=== PATIENT | male | born 1955 | race Caucasian/White ===

== ENCOUNTER 2025-02-22 12:40 | Emergency (ER) | payer MEDICARE, OTHER, SELFPAY ==
[2025-02-22 12:43] VITALS: BP 108/73
--- NOTE | 2025-02-22 13:48 | ED.GENMED ---
History of Present Illness
General
Chief Complaint: Male Genito-Urinary Symptoms
Source: patient
Exam Limitations: none
Time Seen by Provider: 02/22/25 13:36
Nursing documentation reviewed up to this point in time: agreed with
History of Present Illness
History of Present Illness:
70-year-old male with history as noted presents to the ER for evaluation of hematuria. Patient reports that yesterday he had an episode of hematuria where he urinated gross red blood. He says that today he had an episode where his urine was more
pink but he was passing clots and so he decided to come to the emergency room to be evaluated. He does feel that he has been able to empty his bladder completely. He has not had dysuria or increased frequency. He denies any abdominal pain. He
does note however that he has a history of kidney stones and for the past 4 months has been dealing with intermittent right flank pain�he says he was diagnosed with a right sided kidney stone at [facility] and was discharged for trial
of passage. He says he has been straining his urine but he does not think he ever passed the stone. Pain had generally resolved but has occasionally flared up and so he had not sought care until hematuria started yesterday. He is not on any blood
thinners.
Past History
Past History
ED Past Medical History: Other (Diverticulosis/Diverticilitis, kidney stones)
ED Past Surgical History: Urological
Social History
Tobacco: Non-smoker
Alcohol: Occasional
Drug: None
Living: with family
Employment: Employed
Review of Systems
Review of Systems
All Other Systems: ROS reviewed and negative except as documented in HPI and ROS
Constitutional: Denies fever
Respiratory: Denies trouble breathing
Cardiac: Denies chest pain
ABD/GI: Denies abdominal pain
: Reports flank pain (Intermittent-denies flank pain at present) and bleeding (Hematuria); Denies dysuria or frequency
Musculoskeletal: Denies neck pain or back pain
Neurological: Denies headache
Phy Exam
Physical Exam
Physical Exam:
General: Awake, alert, oriented x3; no acute distress
Head: Normocephalic, atraumatic
Eyes: Conjunctiva normal, sclera anicteric
Throat: Airway intact, handling secretions
Neck: Trachea midline, supple without meningismus
Lungs: Clear to auscultation bilaterally, no wheezing, rales, rhonchi
Heart: Regular rate and rhythm, no murmurs, gallops, or rubs
Abd: Soft, non distended, nontender
Back: No CVA tenderness
Neuro: No gross deficits
Skin: no rash on flank or abdomen
Extremities: Warm well-perfused
Scores
Heart Failure Risk
Heart Failure Risk Score: Not Applicable
Heart Score for Chest Pain Patients
STEMI patient?: Not applicable
Withdrawal Assessment of Alcohol
Withdrawal Assessment Completed?: Not applicable
Course
Orders/Labs/Results
Orders:
Orders
02/22/25 13:38
Bladder Scan- Treatment ONCE
02/22/25 13:47
CT Abd/pel Without Iv Or Oral Urgent
Comment:
Reason For Exam: flank pain, hematuria
02/22/25 14:01
CPK [Creatine Phosphokinase] Urgent
Complete Blood Count/With Diff Urgent
Comprehensive Metabolic Panel Urgent
Urinalysis Reflex To Culture Urgent
Date Specimen was Collected: 02/22/25
Time Specimen was Collected: 13:42
Abnormal Lab Results
02/22/25
14:01
WBC 4.5 L 10^3/uL
(4.8-10.8)
RBC 4.06 L 10^6/uL
(4.70-6.10)
MCV 97.5 H fL
(80.0-94.0)
MCH 32.8 H pg
(27.0-31.0)
Absolute Lymphs (auto) 1.0 L 10^3/uL
(1.2-3.4)
Chloride 110 H mmol/L
(98-107)
Total Protein 6.2 L g/dl
(6.3-8.2)
02/22/25 14:01
02/22/25 14:01
Vital Signs
Initial and Last Documented VS:
Initial Vital Signs
Temp Pulse Resp BP Pulse Ox
36.6 C 67 16 108/73 97
02/22/25 12:43 02/22/25 12:43 02/22/25 12:43 02/22/25 12:43 02/22/25 12:43
Last Documented Vital Signs
Temp Pulse Resp BP Pulse Ox
36.6 C 67 16 106/68 95
02/22/25 12:43 02/22/25 12:43 02/22/25 12:43 02/22/25 14:52 02/22/25 14:55
MDM/Problems Addressed
Differential Diagnosis Includes:
Hematuria/dark urine: Nephrolithiasis, hyperbilirubinemia, bladder polyp, AVM, cancer, rhabdomyolysis, etc
MDM/Problems Addressed:
70-year-old male presents for evaluation of hematuria�has also had intermittent right flank pain for a few months status post diagnosis of nephrolithiasis on the right at outside hospital. He does not think he ever really passed the stone. His
vital signs are normal here. Physical exam as above. He has no urinary retention on bedside bladder scan. Will plan to send urinalysis. Will check labs including a CBC and a CMP. Will send for CT abdomen pelvis to evaluate for nephrolithiasis.
Will reassess after the above.
CBC shows no anemia or thrombocytopenia. CMP shows normal renal function. CPK normal. Urinalysis completely bland with no bilirubin, no blood, no signs of infection. CT shows renal stones and bladder stones but no ureteral stones. Unclear
etiology of episode of hematuria but voiding completely with bland urinalysis now. Possible that he finally passed his ureteral stone and that is why he has bladder stones on CT and there could have been some bleeding with this. Stable for
discharge for outpatient urology referral. Explained that he may need cystoscopy for further inspection to completely rule out cancer and other diagnoses. Spoke about return precautions all questions answered.
*Radiology
Radiology exam reviewed: radiology read reviewed
*Pulse Oximetry
SaO2: 97
Oxygen Mode of Delivery: Room air
Patient hypoxic: no (97%)
*Critical Care Note
Total Time (30-74mins, 75-104mins- exclusive of procedures): Not Applicable
Data Reviewed
Review of Other/Old Records Reveals: Labs and Records
Source: patient and spouse
ED Attending Note
-
Portions of this chart may have been created with voice recognition software.� Occasional wrong word or��sound alike� substitutions may have occurred due to the inherent limitations of voice recognition software.
Discharge Plan
Departure
Patient Disposition: Home (Routine Discharge)
Date of Disposition: 02/22/25
Time of Disposition: 14:50
Patient with high blood pressure during this ER visit?: No
Discharge Problem:
Hematuria
Instructions: Blood in the Urine (Hematuria), Adult (DC)
Prescriptions:
No Action
tamsulosin 0.4 MG capsule
0.4 mg PO DAILY Qty: 7 0RF
levofloxacin [Levaquin] 500 MG tablet
500 mg PO DAILY Qty: 3 1RF
oxycodone-acetaminophen [Percocet] 1 EACH tablet
1 ea PO Q6HPRN PRN (Reason: pain) Qty: 10 0RF
ondansetron 4 MG tablet,disintegrating
4 mg PO TIDPRN PRN (Reason: nausea) Qty: 7 0RF
Align
1 tab PO DAILY
escitalopram oxalate 10 MG tablet
10 mg PO DAILY
FIBER
DAILY
Referrals:
Eliseo Saab MD [[facility], Urology] - Call in 1-3 days for appt
Referral Note: urology
Activity Restrictions/Additional Instructions:
Thank you for visiting the Emergency Department at [facility] [place].
1. Please schedule a follow up appointment as directed. Call first thing tomorrow morning to make an appointment.
2. If indicated, please take your medications as instructed and indicated on discharge paperwork.
3. If any of your symptoms do not improve, or persist, or become more severe within 6-12 hours, please return to the emergency department for further care.
4. Please return to the emergency department if you develop a headache, neck pain/stiffness, fever greater than 100.4F, chest pain, shortness of breath, persistent nausea, vomiting, slurred speech, difficulty walking, numbness/tingling, weakness,
signs of infection or any other symptoms that are worrisome to you.
Please call [phone] if you have any questions.
Interventions
Interventions:
*Risk Screen - Suicide Last Done: 02/22/25 12:44
*General Assessment Last Done: 02/22/25 14:15
*Neglect/Abuse Screening Last Done: 02/22/25 12:44
*ED- Fall Risk Assessment Last Done: 02/22/25 14:15
*ED COVID-19 Vaccine History Last Done: 02/22/25 14:15
ED-Male Genitourinary Assessment Last Done: 02/22/25 14:15
Discharge Date and Time
Print Language: BRAZILIAN
[2025-02-22 14:11] LABS: Urine Character Clear (Clear)
[2025-02-22 14:12] LABS: Hematocrit 39.6 % (39.0-52.0); Hemoglobin 13.3 g/dL (13.0-18.0); Mean Corp Hgb Conc. 33.6 g/dL (33.0-37.0); Mean Corpuscular Volume 97.5 fL (80.0-94.0); Nucleated Red Blood Cells % 0 % (-); Platelet Count 203 10^3/uL (130-400); Red Cell Dist. Width 14.4 % (11.5-14.5)
[2025-02-22 14:40] LABS: ALT (SGPT) 37 U/L (0-50); AST (SGOT) 35 U/L (17-59); Albumin 4.0 g/dl (3.5-5.0); Alkaline Phosphatase 104 U/L (38-126); Blood Urea Nitrogen 12 mg/dl (9-20); Calcium 9.4 mg/dl (8.4-10.2); Carbon Dioxide 27 mmol/L (22-30); Chloride 110 mmol/L (98-107); Glucose 87 mg/dl (70-99); Potassium 4.4 mmol/L (3.5-5.1); Sodium 138 mmol/L (135-145); Total Protein 6.2 g/dl (6.3-8.2); eGFR > 60.00
[2025-02-22 14:52] VITALS: BP 106/68
== END 2025-02-22 15:15 | disposition home or self-care (01) ==
LOC: EMR 12:40
PROVIDERS: EMERGENCY PHYSICIAN Emergency Medicine; FAMILY PHYSICIAN Family Medicine
DX: R31.9 Hematuria, unspecified (principal); N20.0 Calculus of kidney
CPT/HCPCS: 99284; 74176; 80053; 81003; 82550; 85025